=== PATIENT | female | born 1960 | race Caucasian/White ===

== ENCOUNTER 2022-09-14 06:18 | Day surgery (SDC) | payer OTHER, BC ==
[~2022-09-14 06:18] MED LIST: Albuterol 0.083% 2.5 MG/3 ML Neb Soln NEB PRN; HYDROmorphone 1 MG/ML Syringe IVPUSH PRN; Lactated Ringers 1,000 ML IV SCH; Metoclopramide 10 MG/2 ML SDV IVPUSH PRN; Morphine 2 MG/ML SYRINGE IVPUSH PRN; Naloxone 0.4 MG/ML SDV IVPUSH PRN; Ondansetron 4 MG/2 ML SDV IVPUSH PRN; fentaNYL 50 MCG/ML SDV IVPUSH PRN
[2022-09-14] MEDS ORDERED: Ondansetron 4 MG/2 ML SDV ONE (07:18)
[2022-09-14] MEDS ORDERED: Dexamethasone 4 MG/ML 5 ML MDV ONE (07:18)
[2022-09-14] MEDS ORDERED: Water For Injection, Sterile 20 ML ONE (07:18)
[2022-09-14] MEDS ORDERED: Dexmedetomidine 200 MCG/2 ML SDV ONE (07:18)
[2022-09-14] MEDS ORDERED: Ketorolac 30 MG/ML SDV ONE (07:18)
[2022-09-14] MEDS ORDERED: propofoL 100 ML ONE (07:19)
[2022-09-14] MEDS ORDERED: fentaNYL 100 MCG/2 ML SDV ONE (07:19)
[2022-09-14] MEDS ORDERED: Ropivacaine 0.5% 5 MG/ML 30 ML SDV ONE (07:21)
[2022-09-14] MEDS ORDERED: ceFAZolin 2 GM in Premix Bag 1 BAG IV SCH (08:00)
[2022-09-14] MEDS ORDERED: ceFAZolin 2 GM Vial ONE (08:06)
[2022-09-14] MEDS ORDERED: ceFAZolin 1 GM Vial ONE (08:07)
[2022-09-14] MEDS ORDERED: ePHEDrine 50 MG/ML SDV ONE (08:14)
== END 2022-09-14 10:25 | disposition home or self-care (01) ==
LOC: MW.SDS 06:18
PROVIDERS: ATTEND Orthopaedic Surgery
DX: S52.572A Other intraarticular fracture of lower end of left radius, initial encounter for closed fracture (principal); S52.612A Displaced fracture of left ulna styloid process, initial encounter for closed fracture; E11.9 Type 2 diabetes mellitus without complications; E03.9 Hypothyroidism, unspecified; E55.9 Vitamin D deficiency, unspecified; M81.0 Age-related osteoporosis without current pathological fracture; M19.90 Unspecified osteoarthritis, unspecified site; J30.9 Allergic rhinitis, unspecified; Z79.899 Other long term (current) drug therapy; Z79.890 Hormone replacement therapy; Z91.048 Other nonmedicinal substance allergy status; Z98.890 Other specified postprocedural states
CPT/HCPCS: 25609; 76000; J0690; J1100; J1885; J2405; J2704; J2795; J3010; J7120; C1713; J3490